=== PATIENT | male | born 1975 | race Hispanic/Latino ===

== ENCOUNTER 2018-12-20 15:52 | Inpatient (IN) | payer OTHER ==
[~2018-12-20] VITALS: Ht 170.2 cm; Wt 99.8 kg
[2018-12-20] MEDS ORDERED: SODIUM CHLORIDE 0.9% 1000ML 1,000 ML IV STA (17:15)
[2018-12-20] MEDS ORDERED: MORPHINE SULFATE 5 MG/ML VIAL IV ONE (17:30)
[2018-12-20] MEDS ORDERED: DIATRIZOATE MEGL/DIATRIZOA SOD 30 ML BTL PO ONE (17:38)
[2018-12-20] MEDS ORDERED: MORPHINE SULFATE INJ 4 MG/ML INJ 1ML IV ONE (17:45)
[2018-12-20] MEDS ORDERED: ONDANSETRON HCL INJ 2MG/ML 2ML 2 MG/ML VIAL IV ONE (17:45)
[2018-12-20 18:03] LABS: BASOPHILS # (AUTO) 0.1 (0.0-0.1); BASOPHILS % 0.4 % (0.0-1.0); EOSINOPHILS # (AUTO) 0.1 (0.0-0.4); EOSINOPHILS % 0.6 % (0.0-6.0); HEMATOCRIT 43.1 % (38.2-49.6); HEMOGLOBIN 14.3 g/dL (14.0-18.0); LYMPHOCYTES % 16.7 % (18.0-39.1); MEAN CORPUSCULAR HEMOGLOBIN 30.6 pg (28-32); MEAN CORPUSCULAR HGB CONC 33.2 g/dL (31-35); MEAN CORPUSCULAR VOLUME 92.3 fL (81-99); MONOCYTES # (AUTO) 1.3 (0.2-0.8); MONOCYTES % 7.1 % (4.4-11.3); NEUTROPHILS # (AUTO) 13.4 (2.1-6.9); NEUTROPHILS % 74.6 % (38.7-80.0); PLATELET COUNT 431 x10e3/uL (140-360); RED BLOOD COUNT 4.67 x10e6/uL (4.3-5.7); RED CELL DISTRIBUTION WIDTH 13.3 % (11.7-14.4)
[2018-12-20 18:15] LABS: ALANINE AMINOTRANSFERASE 29 IU/L (0-55); ALBUMIN 3.5 g/dL (3.5-5.0); ALBUMIN/GLOBULIN RATIO 0.8 (0.8-2.0); ALKALINE PHOSPHATASE 100 IU/L (40-150); ANION GAP 13.1 mmol/L (8-16); BLOOD UREA NITROGEN 10 mg/dL (7-26); BUN/CREATININE RATIO 12 (6-25); CALCIUM 9.3 mg/dL (8.4-10.2); CARBON DIOXIDE 26 mmol/L (22-29); CHLORIDE 97 mmol/L (98-107); CREATININE, SERUM 0.85 mg/dL (0.72-1.25); EST GLOMERULAR FILTRATION RATE > 60 ML/MIN (60-); GLUCOSE 88 mg/dL (74-118); MAGNESIUM 2.3 MG/DL (1.3-2.1); POTASSIUM 4.1 mmol/L (3.5-5.1); SODIUM 132 mmol/L (136-145)
[2018-12-20] MEDS ORDERED: ACETAMINOPHEN 1000 MG/100 ML IV ONE (18:50)
[2018-12-20] MEDS: PIPER-TAZ 3.375 GM 50 ML IV SCH (19:05)
[2018-12-20] MEDS: VANCOMYCIN 1GM/NS 250 ML 250 ML IV SCH (19:06)
--- NOTE | 2018-12-20 20:50 | Diagnostic Imaging Report ---
EXAMINATION: CT of the abdomen and pelvis with contrast. TECHNIQUE: Spiral CT images of the abdomen and pelvis were performed from the lung bases to the lesser trochanters after the intravenous administration of 150 cc of Isovue 300. Oral contrast administered. Coronal and sagittal reformatted images were obtained. COMPARISON: None. CLINICAL HISTORY:43-year-old male with abdominal pain concern for diverticulitis DISCUSSION: ABDOMEN/PELVIS: LOWER THORAX:Unremarkable. HEPATOBILIARY: No focal hepatic lesions. No intra or extrahepatic biliary ductal dilation. GALLBLADDER: No radio-opaque stones or sludge. No wall thickening. SPLEEN: No splenomegaly. PANCREAS: No focal masses or ductal dilatation. ADRENALS: No adrenal nodules. KIDNEYS/URETERS: No hydronephrosis, stones, or solid mass lesions. PELVIC ORGANS/BLADDER: The bladder is normal. PERITONEUM/RETROPERITONEUM: Multifocal air/fluid collections in the left lower quadrant with extensive adjacent inflammatory stranding, the largest collection measures up to 4 cm. The appendix is normal. LYMPH NODES: No intra-abdominal, retroperitoneal, pelvic or inguinal lymphadenopathy. VESSELS: The celiac trunk,superior and inferior mesenteric and bilateral renal arteries are patent The portal, superior mesenteric and splenic veins are patent. GI TRACT: Bowel wall thickening and enhancement of the distal descending and proximal sigmoid colon. No evidence of obstruction. BONES AND SOFT TISSUE: No bony destructive lesions. No soft tissue abnormalities. IMPRESSION: Perforated acute diverticulitis of the distal descending/proximal sigmoid colon with multifocal small air and fluid collections in the left lower quadrant, the largest measuring up to 4 cm. No definitive enhancing rim to confirm abscess formation around any of these collections. Emergency room physician notified at time of dictation on 12/20/2018 Signed by: Christian Lopez MD on 12/20/2018 8:47 PM
[2018-12-20] MEDS ORDERED: ONDANSETRON HCL INJ 2MG/ML 2ML 2 MG/ML VIAL IV PRN (21:15)
[2018-12-20] MEDS ORDERED: MORPHINE SULFATE INJ 4 MG/ML INJ 1ML IV PRN (21:15)
[2018-12-20] MEDS ORDERED: MORPHINE SULFATE 2 MG/ML SYR 1ML IV PRN (21:15)
--- OUTSIDE RECORDS SUMMARY | 2018-12-20 21:20 | XMS REPORT ---
Author Author [facility] Address Unknown Phone Unavailable Care Team Providers Care Assembler Unit Name Role Phone Osvaldo BURCH Unavailable Unavailable Problems This patient has no known problems. Allergies, Adverse Reactions, Alerts This patient has no known allergies or adverse reactions. Medications This patient has no known medications. Results Test Description Test Time Test Comments Text Results Atomic Results Result Comments CT ABDOMEN/PELVIS W 2018-12-20 20:33:00 [place] [address] Patient Name: ARMANI PAYNE MR #: [id number] : 1975 Age/Sex: 43/M Req #: [id number] Adm Physician: Ordered by: SAJI HARMON CLAIM AUDITOR Report #: [id number] Location: ER Room/Bed: Procedure: [id number] CT/CT ABDOMEN/PELVIS W Exam Date: 12/20/18 Exam Time: 1931 REPORT STATUS: Signed EXAMINATION: CT of the abdomen and pelvis with contra st. TECHNIQUE: Spiral CT images of the abdomen and pelvis were performed from the lung bases to the lesser trochanters after the intravenous administration of 150 cc of Isovue 300. Oral contrast administered. Coronal and sagittal reformatted images were obtained. COMPARISON: None. CLINICAL HISTORY:43-year-old male with abdominal pain concern for diverticulitis DISCUSSION: ABDOMEN/PELVIS: LOWER THORAX:Unremarkable. HEPATOBILIARY: No focal hepatic lesions. No intra or extrahepatic biliary ductal dilation. GALLBLADDER: No radio-opaque stones or sludge. No wall thickening. SPLEEN: No splenomegaly. PANCREAS: No focal masses or ductal dilatation. ADRENALS: No adrenal nodules. KIDNEYS/URETERS: No hydronephrosis, stones, or solid mass lesions. PELVIC ORGANS/BLADDER: The bladder is normal. PERITONEUM/RETROPERITONEUM: Multifocal air/fluid collections in the left lower quadrant with extensive adjacent inflammatory stranding, the largest collection measures up to 4 cm. The appendix is normal. LYMPH NODES: No intra-abdominal, retroperitoneal, pelvic or inguinal lymphadenopathy. VESSELS: The celiac trunk,superior and inferior mesenteric and bilateral renal arteries are patent The portal, superior mesenteric and splenic veins are patent. GI TRACT: Bowel wall thickening and enhancement of the distal descending and proximal sigmoid colon. No evidence of obstruction. BONES AND SOFT TISSUE: No bony destructive lesions. No soft tissue abnormalities. IMPRESSION: Perforated acute diverticulitis of the distal descending/proximal sigmoid colon with multifocal small air and fluid collections in the left lower quadrant, the largest measuring up to 4 cm. No definitive enhancing rim to confirm abscess formation around any of these collections. Emergency room physician notified at time of dictation on 12/20/2018 Signed by: Christian Lopez MD on 12/20/2018 8:47 PM Dictated By: ANA LILIA LOPEZ MD 46 Transcribed By: SHYANNE on 12/20/182046 COPY TO: SAJI HARMON NP
[2018-12-20 22:23] VITALS: BP 115/79
--- NOTE | 2018-12-20 22:32 | NUR ---
RECEIVED FROM THE EMERGENCY ROOM PER STRETCHER, FAMILY PRESENT.
[2018-12-20] MEDS: SODIUM CHLORIDE 0.9% 1000ML 1,000 ML IV SCH (23:15)
[2018-12-21] VITALS (7 sets, daily range): BP systolic 92–120; BP diastolic 55–84
[2018-12-21] MEDS ORDERED: IOPAMIDOL 370 MG/ML 200 ML INFUS..BTL INJ ONE (00:16)
[2018-12-21] MEDS ORDERED: SODIUM CHLORIDE 0.9% 50ML 50 ML ONE (00:16)
[2018-12-21] MEDS: PIPER-TAZ 3.375 GM 50 ML IV SCH ×2 (01:09→07:38)
[2018-12-21] MEDS: VANCOMYCIN 1GM/NS 250 ML 250 ML IV SCH (05:40)
[2018-12-21 05:52] LABS: INR 1.08; PROTHROMBIN TIME 14.5 seconds (11.9-14.5)
[2018-12-21 05:53] LABS: PARTIAL THROMBOPLASTIN TIME 38.7 seconds (23.8-35.5)
--- NOTE | 2018-12-21 07:11 | NUR ---
pt alert resp even and unlabored at this time no distress noted pt able to make needs known no c/o pain when asked call light in reach.
[2018-12-21] MEDS: SODIUM CHLORIDE 0.9% 1000ML 1,000 ML IV SCH ×2 (07:38→13:38)
--- NOTE | 2018-12-21 07:40 | NUR ---
ROUNDS DONE, PATIENT CONTINUE RESTING IN BED, IV INFUSING TO HIS RIGHT AC AREA, CONTINUE RECEIVING IV ANTIBIOTICS. DR. DUPREE VISITED, NEW ORDERS NOTED.
[2018-12-21] MEDS: MEROPENEM 500MG/ NS 50ML 50 ML IV SCH ×2 (12:27→18:00)
--- NOTE | 2018-12-21 13:04 | Consultation ---
DATE OF CONSULTATION: 12/21/2018 HISTORY OF PRESENT ILLNESS: The patient is a 43-year-old male, who presents with complaints of left lower quadrant abdominal pain. He says he has been having pain in that area for three weeks. He was treated with p.o. antibiotics, just Flagyl. Pain progressively worsened. He came to the emergency room yesterday with findings of a multiloculated fluid collection around the colon with some air and fluid in it. He says he was having bowel movements, but mostly diarrhea. He has not had any fever. He denies nausea or vomiting. He has not had similar pains in the past. CT did not reveal signs of free intraperitoneal perforation. PAST MEDICAL HISTORY: Otherwise unremarkable. He has no chronic medical problems. PAST SURGICAL HISTORY: No previous surgery. MEDICATIONS: No home medications. ALLERGIES: NO KNOWN ALLERGIES. FAMILY HISTORY: Noncontributory. SOCIAL HISTORY: The patient smokes cigarettes half pack per day, occasionally drinks alcohol. REVIEW OF SYSTEMS: As stated above, otherwise was negative. PHYSICAL EXAMINATION: GENERAL: The patient is awake and alert. VITAL SIGNS: Normal. He is afebrile. He is not tachycardic. HEENT: Reveals no scleral icterus. NECK: No masses. LUNGS: Equal breath sounds are clear bilaterally. CARDIAC: Regular rate and rhythm with no murmur. ABDOMEN: Tender in the left lower quadrant, questionable signs of peritonitis. There is no mass. There was no organomegaly. EXTREMITIES: Have no edema. Pulses were palpable. NEUROLOGIC: Intact. LAB TESTS: White blood cell count of 17.9 on admission, hemoglobin and hematocrit are normal. Chemistries were essentially normal. ASSESSMENT: A 43-year-old male with acute sigmoid diverticulitis. No signs of generalized peritonitis or severe systemic sepsis. At this point, I think the patient could be treated with IV antibiotics, which have been started and likely will resolve without requiring surgical intervention; however, if his pain progresses or has signs of worsening infection, then surgery may be indicated. Thank you for asking me to see Mr. Tamez. MD CONNIE Cuevas/JOHN /[id number]
[2018-12-21] MEDS ORDERED: ACETAMINOPHEN 325 MG TAB PO PRN (16:45)
--- NOTE | 2018-12-21 17:26 | Consultation ---
DATE OF CONSULTATION: 12/21/2018 Located at [facility] in [place], [place]. This is a patient of Dr. Lizama. HISTORY OF PRESENT ILLNESS: Mr. Tamez is a 43-year-old gentleman with fever, chills, abdominal pain mostly in left lower quadrant for a few days, reported to the emergency department. Initial workup was done. Radiology studies including CAT scan of the abdomen and pelvis suggested perforated acute diverticulitis of the distal descending and proximal sigmoid colon with multifocal small area of fluid collection in the left lower quadrant, the largest measuring up to 4 cm. No definitive enhancing rim to confirm abscess formation around any of these collections. The patient was seen by Dr. Beltran of the General Surgery team. Nausea and vomiting have improved. Fever has improved. Per my discussion with the nursing staff, the patient is allowed to drink liquid and be on a liquid diet and Infectious Disease was consulted for the management of antibiotics. PAST MEDICAL HISTORY: No significant past medical history. ALLERGIES: NO ALLERGIES. MEDICATIONS: Medication list has been reviewed. As far as Infectious Disease point of view, the patient is on vancomycin and Zosyn. LABORATORIES: Sodium 132, potassium 4.1, creatinine 0.85. Hemoglobin 14.3, white blood cells 17.95, and platelet count of 431. CT studies were mentioned above. REVIEW OF SYSTEMS: Complaining of left lower quadrant abdominal pain. Nausea improved. Vomiting resolved. Fever and chills resolved. Appetite is okay. ASSESSMENT AND PLAN: A 43-year-old gentleman with left lower quadrant abdominal pain with perforated diverticulitis. We will change antibiotics to meropenem. Pending General Surgery plan and notes to be available. Discussed with Dr. Wallace in detail. Follow up labs. Monitor the patient clinically. Further management of this patient is based on daily finding on laboratory and physical examination. Thank you very much for this consult. Dictated by Zack Carver PA-C (Al) Shakira Wallace MD /MODL /[id number]
--- NOTE | 2018-12-21 19:12 | NUR ---
RECEIVED REPORT FROM PREVIOUS NURSE. PATIENT SITTING IN THE CHAIR. NO PAIN OR DISTRESS. CALL LIGHT WITHIN REACH
--- NOTE | 2018-12-21 19:35 | NUR ---
report given to oncoming nurse, for continued care.
[2018-12-22] VITALS (8 sets, daily range): BP systolic 100–139; BP diastolic 63–82
[2018-12-22] MEDS: MEROPENEM 500MG/ NS 50ML 50 ML IV SCH ×4 (00:31→18:33)
[2018-12-22] MEDS: SODIUM CHLORIDE 0.9% 1000ML 1,000 ML IV SCH ×4 (05:01→22:02)
[2018-12-22 05:54] LABS: BLOOD UREA NITROGEN 7 mg/dL (7-26); BUN/CREATININE RATIO 9 (6-25); CALCIUM 8.7 mg/dL (8.4-10.2); CARBON DIOXIDE 25 mmol/L (22-29); CHLORIDE 105 mmol/L (98-107); CREATININE, SERUM 0.78 mg/dL (0.72-1.25); EST GLOMERULAR FILTRATION RATE > 60 ML/MIN (60-); GLUCOSE 95 mg/dL (74-118); SODIUM 139 mmol/L (136-145)
[2018-12-22 06:43] LABS: BASOPHILS # (AUTO) 0.1 (0.0-0.1); BASOPHILS % 0.4 % (0.0-1.0); EOSINOPHILS # (AUTO) 0.2 (0.0-0.4); EOSINOPHILS % 1.2 % (0.0-6.0); HEMATOCRIT 40.4 % (38.2-49.6); HEMOGLOBIN 13.6 g/dL (14.0-18.0); LYMPHOCYTES # (AUTO) 2.1 (1.0-3.2); LYMPHOCYTES % 16.5 % (18.0-39.1); MEAN CORPUSCULAR HGB CONC 33.7 g/dL (31-35); MONOCYTES # (AUTO) 1.3 (0.2-0.8); NEUTROPHILS # (AUTO) 9.1 (2.1-6.9); NEUTROPHILS % 71.4 % (38.7-80.0); PLATELET COUNT 336 x10e3/uL (140-360); RED BLOOD COUNT 4.39 x10e6/uL (4.3-5.7); RED CELL DISTRIBUTION WIDTH 13.2 % (11.7-14.4)
--- NOTE | 2018-12-22 07:10 | NUR ---
Pt alert resp even and unlabored at this time, no distress noted no c/o pain when asked, pt able to make needs known, call light in reach.
--- NOTE | 2018-12-22 07:26 | NUR ---
Report given to oncoming nurse. No pain or distress noted. Call light within reach.
--- NOTE | 2018-12-22 11:35 | Progress Note ---
DATE: SUBJECTIVE: The patient is here for acute diverticulitis, seemingly bit better. Still continues with diarrhea with food. The patient is tolerating a soft GI diet. No complications noted at this time. MEDICATIONS: Include meropenem, morphine sulfate, and Zofran. PHYSICAL EXAMINATION: VITAL SIGNS: Temperature is 99.9, pulse of 80, respirations of 17, blood pressure is 129/82, pulse oximetry 98% on room air. HEENT: Normocephalic, atraumatic. Pupils react to light and accommodation. CVS: S1, S2 normal. Regular rhythm. ABDOMEN: Tenderness present in the left lower quadrant. No rebound present. Soft. EXTREMITIES: No clubbing, no cyanosis, no edema. ASSESSMENT: Acute diverticulitis. The patient is being covered by adequate antibiotics. The patient is tolerating his diet. We will slowly advance his diet to a normal diet. The patient has been advised to do a colonoscopy in 3 months and to continue with high-fiber diet once the acute treatment phase has been over. Further recommendation and clinical course, we will continue the patient on antibiotics and also IV fluids at this time to resuscitate. MD ANNIE [place]/MODL /[id number]
--- NOTE | 2018-12-22 19:15 | NUR ---
RECEIVED REPORT FROM PREVIOUS NURSE. PATIENT IN BED. NO PAIN OR DISTRESS. CALL LIGHT WITHIN REACH.
--- NOTE | 2018-12-22 19:18 | NUR ---
REPORT GIVEN TO ONCOMING NURSE, FOR CONTINUED CARE
[2018-12-23] VITALS: BP 120/79
[2018-12-23] MEDS: MEROPENEM 500MG/ NS 50ML 50 ML IV SCH ×2 (00:33→05:32)
[2018-12-23 04:00] VITALS: BP 113/72
[2018-12-23] MEDS: SODIUM CHLORIDE 0.9% 1000ML 1,000 ML IV SCH (05:47)
--- NOTE | 2018-12-23 06:54 | NUR ---
Gave report to oncoming nurse. Patient asleep in bed. No pain or distress. Call light within reach.
[2018-12-23] MEDS ORDERED: CIPRO500 MG PO (08:00)
[2018-12-23] MEDS ORDERED: METRONIDAZOLE500 MG PO (08:01)
[2018-12-23 08:30] VITALS: BP 120/80
--- NOTE | 2018-12-23 10:20 | Progress Note ---
DATE: SUBJECTIVE: The patient is here for diverticulitis, leukocytosis, and abdominal pain. Currently, the patient is asymptomatic, in good spirits. No abdominal pain. No diarrhea. No complications. No chest pain or shortness of breath. OBJECTIVE: VITAL SIGNS: Temperature is 99.5, respirations of 17, blood pressure is 113/72, and pulse oximetry of 97% on room air. HEENT: Normocephalic and atraumatic. Pupils react to light and accommodation. CVS: S1 and S2. Normal rate and rhythm. ABDOMEN: Nontender and nondistended. No rebound. No guarding. EXTREMITIES: No clubbing, no cyanosis, and no edema. MEDICATIONS: He is on fluid resuscitation, Merrem, and also morphine sulfate, which he has not taken at all. LABORATORY DATA: The patient's laboratory values, white count is 12,000 from yesterday, hemoglobin is 13.6, and the left shift is normalized. Chemistry; sodium of 139, potassium of 4.0, BUN of 7, and creatinine of 0.78. ASSESSMENT AND PLAN: 1. Acute diverticulitis. The patient has advanced very well. He is on a gastrointestinal soft diet, can be discharged home. I did recommend the patient be on a soft diet until the pain completely is resolved and also will need a colonoscopy in 3 months. 2. The patient with history of hypertension. We will continue monitoring his blood pressure. So far, he has been controlled. We will not resume his antihypertensive until I see him back in the clinic. 3. Obesity. The patient has been asked to decrease weight. 4. Further recommendation as an outpatient. We will discharge the patient today on ciprofloxacin and also Flagyl. MD WANDA [place]J/MODL /[id number]
--- NOTE | 2018-12-25 04:19 | Discharge Summary ---
DISCHARGE DIAGNOSIS: Acute diverticulitis. HISTORY OF PRESENT ILLNESS AND HOSPITAL COURSE: The patient is a gentleman, who presented with acute diverticulitis and possible abscess formation . The patient's exam was essentially benign, so we continued with IV antibiotics and the patient advanced where he was having no pain. He was able to tolerate his diet very well. His abdominal exam revealed no peritoneal signs whatsoever. His laboratory data improved on his white count. He did not have any signs of fever or toxicity. So, at the time of discharge the patient was doing great and he really wanted to go home. He was switched over to p.o. Flagyl and Cipro and will continue to follow up with his primary care physician in 1 week. Please see hospital chart for full details. MD SALVADOR David/JOHN /[id number]
== END 2018-12-23 09:16 | disposition home or self-care (01) | DRG 392 ==
LOC: ER 15:52 → ERHOLD 21:17 → MED/SURG2 22:25
PROVIDERS: ADMIT Internal Medicine; ATTEND Internal Medicine
DX: K57.20 Diverticulitis of large intestine with perforation and abscess without bleeding (principal); R19.7 Diarrhea, unspecified; I10 Essential (primary) hypertension; E66.9 Obesity, unspecified; Z68.34 Body mass index [BMI] 34.0-34.9, adult
CPT/HCPCS: 36415; 74177; 80048; 80053; 83605; 83735; 85025; 85610; 85730; 99284; J2270; J2405; J2543; J3370; J7030; Q9967